=== PATIENT | male | born 1970 | race Caucasian/White ===

== ENCOUNTER 2017-10-13 12:49 | Emergency (ER) | payer OTHER ==
[2017-10-13 13:04] VITALS: BP 118/79; PULSE 77; TEMP 98.3; BMI 21.2
[2017-10-13] MEDS ORDERED: KETOROLAC TROMETHAMINE 30 MG/1 ML VIAL IM ONE (14:33)
[2017-10-13] MEDS ORDERED: KETOROLAC TROMETHAMINE 30 MG/1 ML VIAL ONE (14:35)
--- NOTE | 2017-10-13 14:41 | PDOC ---
History of Present Illness - General Chief Complaint: Headache Stated Complaint: HEADACHE Time Seen by Provider: 10/13/17 14:21 History Source: Patient Exam Limitations: No Limitations - History of Present Illness Initial Comments: 10/13/17 14:35 This is a 47-year-old male without significant past medical history who presents emergency Department with 2 days of occipital headache. Patient states his headache is waxing and waning and is unable to identify causes for his headache to come and go. Patient states he been taking Tylenol intermittently which has mild relief of his symptoms. Denies any change in diet, medications, coffee intake. Patient denies any head trauma, blurry vision, dizziness, nausea , vomiting, chest pain, shortness of breath. Past History - Past Medical History Allergies/Adverse Reactions: Allergies Allergy/AdvReac Type Severity Reaction Status Date / Time No Known Allergies Allergy Verified 10/13/17 13:00 Home Medications: Ambulatory Orders NK [No Known Home Medication] 10/13/17 COPD: No - Suicide/Smoking/Psychosocial Hx Smoking History: Never smoked Have you smoked in the past 12 months: No Information on smoking cessation initiated: No Hx Alcohol Use: No Drug/Substance Use Hx: No Substance Use Type: None Review of Systems - Review of Systems Able to Perform ROS?: Yes Is the patient limited Palestinian proficient: No Constitutional: No: Symptoms Reported HEENTM: No: Symptoms Reported Respiratory: No: Symptoms reported Cardiac (ROS): No: Symptoms Reported ABD/GI: No: Symptoms Reported : No: Symptoms Reported Musculoskeletal: No: Symptoms Reported Integumentary: No: Symptoms Reported Neurological: Yes: See HPI Endocrine: No: Symptoms Reported Hematologic/Lymphatic: No: Symptoms Reported *Physical Exam - Vital Signs Last Vital Signs Temp Pulse Resp BP Pulse Ox 98.3 F 77 18 118/79 100 10/13/17 13:02 10/13/17 13:02 10/13/17 13:02 10/13/17 13:02 10/13/17 13:02 - Physical Exam General Appearance: Yes: Appropriately Dressed. No: Apparent Distress HEENT: positive: Normal ENT Inspection Neck: positive: Trachea midline, Supple Respiratory/Chest: positive: Lungs Clear, Normal Breath Sounds. negative: Respiratory Distress, Accessory Muscle Use Cardiovascular: positive: Regular Rhythm, Regular Rate. negative: Murmur Gastrointestinal/Abdominal: positive: Normal Bowel Sounds, Soft. negative: Tender Musculoskeletal: positive: Normal Inspection. negative: CVA Tenderness Extremity: positive: Normal Capillary Refill, Normal Inspection Integumentary: positive: Normal Color, Dry, Warm Neurologic: positive: trade sales assistant II-XII NML intact, Fully Oriented, Alert, Normal Mood/ Affect, Normal Response, Motor Strength 5/5, Finger to Nose. negative: Numbness , Sensory Deficit Medical Decision Making - Medical Decision Making 10/13/17 14:41 A/P: 47-year-old male without significant past medical history with occipital headache for 2 days Cranial nerves II through XII intact. Data gait appreciated. Negative Romberg Negative Kernig and negative Brudzinski No muscle spasms palpated in the trapezius or sternal cleidomastoid Full articulation of neck noted Vital signs are unremarkable Given patient has no history of headaches and is over 40 years old and get a CT of the head. Toradol 30 mg IM now Reassess 10/13/17 15:39 CT of the head as read by Dr. Alba: There is minimal volume loss which is nonspecific. The ventricles and basal cisterns appear unremarkable. No mass lesion, gross acute infarct or intracranial hemorrhage are identified. This was paranasal sinuses and mastoid air cells are well aerated. The calvarium is intact. Headache is currently 3/10 which patient states is acceptable. I will discharge the patient home with follow-up with his primary doctor. *DC/Admit/Observation/Transfer Diagnosis at time of Disposition: Headache Qualifiers: Headache type: unspecified Headache chronicity pattern: acute headache Intractability: not intractable Qualified Code(s): R51 - Headache - Discharge Dispostion Disposition: HOME Condition at time of disposition: Stable Admit: No - Referrals - Patient Instructions Additional Instructions: The CT of the head was normal. Take Tylenol and Motrin as needed for headaches. Follow manufacturers instructions for appropriate dosage. Keep well-hydrated. Make an appointment with your primary doctor for continued evaluation of your headaches. - Post Discharge Activity
== END 2017-10-13 15:46 | disposition home or self-care (01) ==
LOC: JERFT 12:49
PROC: 3E0233Z Introduction of Anti-inflammatory into Muscle, Percutaneous Approach (ICD-10-PCS; principal; 2017-10-13)
DX: R51 Headache (principal)
CPT/HCPCS: 70450-TC; 99281-25